=== PATIENT | female | born 1950 | race Caucasian/White ===

== ENCOUNTER 2018-10-15 10:10 | Day surgery (SDC) | payer MEDICARE, SELFPAY ==
--- NOTE | 2018-10-15 | PATH_ITS ---
[facility] Accession Number: [id number] . 01 Material submitted: . PART A: BIOPSY DUODENUM PART B: GASTRIC POLYP PART C: BIOPSY ANTRUM PART D: BIOPSY GE JUNCTION PART E: CECAL POLYP PART F: MID RIGHT COLON POLYP PART G: POLYP AT 20 . 02 Diagnosis: A. Duodenum, Biopsy: Duodenal mucosa with no significant diagnostic abnormality. Negative for active inflammation, features of sprue, dysplasia and malignancy. . B. Stomach, Polyp, Biopsy: Fundic gland polyp. No evidence of Helicobacter on H/E stain. Negative for intestinal metaplasia. Negative for dysplasia and malignancy. . C. Stomach, Antrum, Biopsy: Antral mucosa with no diagnostic abnormality. No evidence of Helicobacter on H/E stain. Negative for intestinal metaplasia. Negative for dysplasia and malignancy. . D. Gastroesophageal Junction, Biopsy: Squamocolumnar junctional mucosa with no diagnostic abnormality. Negative for intestinal metaplasia. Negative for dysplasia and malignancy. . E. Cecum, Polyp, Biopsy: Tubular adenoma. . F. Mid Right Colon, Polyp, Biopsy: Tubular adenoma. . G. Colon, Polyp at 20, Biopsy: Hyperplastic polyp. [facility]/10/16/2018 . 02 Electronically signed: . Rochelle Kimbrough MD, Pathologist NPI- [id number] . 01 Gross description: . Received seven formalin-filled containers each labeled with the patient's name. . A. In a container labeled duodenum, the specimen consists of a 0.2 cm portion of tissue. Entirely submitted in cassette A. B. In a container labeled gastric polyp are two 0.2 to 0.4 cm portions of tissue. Entirely submitted in cassette B. C. In a container labeled antrum, the specimen consists of a 0.4 cm portion of tissue. Entirely submitted in cassette C. D. In a container labeled GE junction are two 0.2 to 0.3 cm portions of tissue. Entirely submitted in cassette D. E. In a container labeled cecal polyp, the specimen consists of a 0.4 cm portion of tissue. Entirely submitted in cassette E. F. In a container labeled mid right colon polyp are two 0.2 to 0.4 cm portions of tissue. Entirely submitted in cassette F. G. In a container labeled polyp at 20, the specimen consists of a 0.2 cm in greatest dimension portion of tissue. Entirely submitted in cassette G. ([facility] [place]:[id number]) / . Pathologist provided ICD-10: D12.0, D12.6 . 02 CPT . 365279, 883704, 097702, 815688, 792952, 487500, 876114 Performed at: 01 [facility] [address] [id number] MD Tera Beard MD Phone: [phone] Performed at: 02 [facility] [address] [place] [id number] MD Rochelle Kimbrough MD Phone: [phone]
[2018-10-15 10:36] VITALS: BP 142/87; PULSE 104; RESP 16; TEMP 36.4; O2SAT 97; BMI 30.8
[2018-10-15] MEDS: SODIUM CHLORIDE 0.9% 1,000 ML 100 ML IV (10:37)
--- NOTE | 2018-10-15 11:18 | PM.PREOP ---
Pre-operative Note Interval Note History & Physical reviewed/Exam performed by Physician: Yes Changes to H&P: No
[2018-10-15] MEDS: TETRACAINE/BENZOCAINE/BUTAMBEN (CETACAINE) BOTTLE 1 SPRAY TOP (11:33)
[2018-10-15] MEDS: LIDOCAINE 4% SOLN 50 ML 20 ML TOP (11:33)
[2018-10-15] MEDS: MIDAZOLAM 5 MG/5 ML VIAL IV (11:46)
[2018-10-15] MEDS: fentaNYL 250 MCG/5 ML INJ IV (11:47)
--- NOTE | 2018-10-15 11:59 | P.OP_ITS ---
Operative Date/Time/Diagnoses Date of procedure: 10/15/18 Time of procedure: 11:58 Pre-op diagnosis: Gastroesophageal reflux Colon screening Post-op diagnosis: same Procedure & Clinicians Procedure: Esophagogastroduodenoscopy with biopsies and colonoscopy to the cecum with polypectomy times 3 Same procedure as scheduled: Yes Indications: Last colonoscopy 11 years ago Surgeon: Vibha Triplett Anesthesia Type: Sedation (Versed 6 mg; fentanyl 150 mcg) Operative Notes Findings: 1. Normal duodenum 2. Normal-appearing antrum 3. Polyp in the fundus of the stomach 4. Esophageal hiatus at 35 cm from the incisors and GE junction at 32-33 cm from the incisors 5. Mucosal junction is very smooth and regular in appearance 6. Excellent prep 7. 2 mm polyp in the floor of the cecum removed with cold forceps and retained for pathology 8. 3-4 mm polyp in the mid ascending colon removed with cold forceps and retained for pathology 9. 2-3 mm polyp at 20 cm removed with cold forceps and retained for pathology 10. Very mild sigmoid diverticulosis 11. Grade 2 internal hemorrhoids Closure Type: not applicable Specimen(s): other (See list above. All all specimens were obtained with cold forceps) Estimated Blood Loss (mL): 5 Procedure in detail: After obtaining informed consent, the patient was brought to the GI suite and placed in the left lateral decubitus position on the examination table. After placement of appropriate monitors, the patient was given incremental doses of Versed and Fentanyl until an appropriate level of sedation was achieved. A time out was held per SCOAP protocol. We began with EGD. A bite block was gently placed between the patient's teeth. The endoscope was lubricated and then passed into the patient's posterior oropharynx. The esophagus was cannulated under direct vision and the scope was passed to the second portion of the duodenum without difficulty. The scope was then withdrawn with careful examination of all areas of the upper GI tract and mucosa. In the stomach, the instrument was retroflexed and the GE junction examined. The scope was straightened and the procedure continued with examination of the remainder of the upper GI tract. Findings are noted above. Air was aspirated from the stomach and the endoscope gently removed from the e sophagus. The examination table was turned and we continued with the colonoscopy. A digital rectal examination was performed and did not reveal any masses or obstructing lesions. The colonoscope was gently passed into the patient's anus and the entire colon navigated to the level of the cecum with minimal difficulty. Once in the cecum, the scope was withdrawn being sure to go before and beyond all mucosal folds and prominences and get an excellent examination. The findings are noted above. At the level of the rectal vault, the scope was retroflexed and the internal anal canal was examined. The scope was straightened and air aspirated from the colon. The instrument was removed from the patient's body and the procedure was concluded. The patient was allowed to awaken from sedation without difficulty and taken to the post-anesthesia care unit in good condition. Total sedation time was 31 min Total colonoscopy withdrawal time was 12 min Complications: none Condition: stable Disposition: PACU Plan for aftercare: 1. Discharge to home 2. Plan for next colonoscopy in 5 years or as clinically indicated 3. Continue current medications 4. We will contact you with pathology results and any other recommendations
[2018-10-15 12:05] VITALS: BP 101/64; PULSE 72; RESP 14; TEMP 36.4; O2SAT 94
[2018-10-15 12:10] VITALS: BP 98/67; PULSE 88; RESP 18; TEMP 36.3; O2SAT 95
[2018-10-15 12:16] VITALS: BP 103/75; PULSE 89; RESP 14; O2SAT 94
[2018-10-15 12:41] VITALS: BP 113/66; PULSE 74; RESP 16; TEMP 36.4; O2SAT 96
== END 2018-10-15 12:56 | disposition home or self-care (01) ==
PROVIDERS: Family Provider Family Medicine; PCP Family Medicine; Visit Provider Surgery
PROC: 0DJ08ZZ Inspection of Upper Intestinal Tract, Via Natural or Artificial Opening Endoscopic (ICD-10-PCS; CPT 43235; principal; 2018-10-15 11:15)
PROC: 0DJD8ZZ Inspection of Lower Intestinal Tract, Via Natural or Artificial Opening Endoscopic (ICD-10-PCS; CPT 45378; 2018-10-15 11:15)
DX: Z12.11 Encounter for screening for malignant neoplasm of colon (principal); K21.9 Gastro-esophageal reflux disease without esophagitis; K57.30 Diverticulosis of large intestine without perforation or abscess without bleeding; K64.1 Second degree hemorrhoids; D12.0 Benign neoplasm of cecum; D12.6 Benign neoplasm of colon, unspecified; K31.7 Polyp of stomach and duodenum; I10 Essential (primary) hypertension; E03.9 Hypothyroidism, unspecified
CPT/HCPCS: 45380; 43239; 88305; 99152; 99153; J2250; J3010

== ENCOUNTER 2019-05-11 06:31 | Day surgery (SDC) | payer MEDICARE, SELFPAY ==
[2019-05-11] MEDS: CATARACT EYE COMPOUND (10 DROPS/SYRINGE) 3 DROPS EYE-OP ×3 (07:15→07:29)
[2019-05-11 07:26] VITALS: BP 155/72; PULSE 51; RESP 14; TEMP 36.2; O2SAT 96
[2019-05-11 07:30] VITALS: BMI 31.1
--- NOTE | 2019-05-11 07:44 | PM.PREOP ---
Pre-operative Note Interval Note History & Physical reviewed/Exam performed by Physician: No Changes to H&P: No
--- NOTE | 2019-05-11 07:44 | PM.OP.1 ---
Operative Date/Time/Diagnoses Pre-op diagnosis: Nuclear Cataract Left eye Post-op diagnosis: same Procedure & Clinicians Surgeon: Pepe England Anesthesia Type: MAC +/- and Sedation Operative Notes Procedure in detail: Patient brought to the operating suite. Tetracaine drops placed in the left eye. Patient was prepped and draped in sterile manner. Wire lid speculum was placed in the eye. Betadine drops were placed on the eye. This was irrigated. Lidocaine jelly was placed on the eye. A paracentesis port was created with a side-port blade. 0.1 mL 1% preservative free lidocaine was injected into the anterior chamber. The anterior chamber was deepened with viscoelastic. 2.6 mm keratome was used to create a temporal clear corneal incision. Cystotome and Utrata forceps were used to create continuous tear capsulorrhexis. Balanced salt solution was used to hydro dissect the nucleus. The [place] was used to make first crack of the nucleous. The phacoemulsification handpiece was inserted and the nucleus was removed using the stop and chop technique. The irrigation aspiration handpiece was inserted and the remaining cortex was removed. Anterior chamber was deepened with viscoelastic. An Gonzalez ZCB00 intraocular lens with a power of 15.0 was injected into the capsular bag. Irrigation aspiration handpiece was inserted and the remaining viscoelastic was removed. Incision was hydrated with balanced salt solution and found to be leak free with pressure with Weck-Steph sponges. 0.1 mL Vigamox injected anterior chamber. 0.3 mL Kenalog 10 mg was injected subconjunctivally. Lid speculum was removed. The patient left the operating room in excellent condition. Complications: none Post-operative Condition: stable Disposition: same day surgery
[2019-05-11] MEDS: BALANCED SALT IRRIG SOLN NO.2 500 ML, EPINEPHrine 1 MG IRR (08:05)
[2019-05-11] MEDS: TRIAMCINOLONE 50 MG/5 ML VIAL INJ (08:07)
[2019-05-11] MEDS: MOXIFLOXACIN INJ 5 MG/ML VIAL EYE-OP (08:09)
[2019-05-11] MEDS: LIDOCAINE JELLY 2% 5 ML 1 APPLIC TOP (08:13)
[2019-05-11 08:14] VITALS: BP 133/66; PULSE 59; RESP 16; TEMP 36.2; O2SAT 97
[2019-05-11] MEDS: CHONDROIDTIN/SOD HYALURONATE 1.05 ML SYRINGE INTRAOCULA (08:14)
== END 2019-05-11 08:31 | disposition home or self-care (01) ==
PROVIDERS: Family Provider Family Medicine; PCP Family Medicine; Visit Provider Ophthalmology
PROC: (CPT 66984; principal; 2019-05-11 07:45)
DX: H25.12 Age-related nuclear cataract, left eye (principal); I10 Essential (primary) hypertension
CPT/HCPCS: 66984; J0171; J2250; J3301

== ENCOUNTER 2019-05-25 07:02 | Day surgery (SDC) | payer MEDICARE, SELFPAY ==
[2019-05-25] MEDS: PROPARACAINE 0.5% OPHTH SOL 2 DROPS EYE-OP (07:15)
[2019-05-25] MEDS: CATARACT EYE COMPOUND (10 DROPS/SYRINGE) 3 DROPS EYE-OP (07:20)
[2019-05-25 07:21] VITALS: BMI 31.1
[2019-05-25 07:23] VITALS: BP 150/80; PULSE 61; RESP 15; TEMP 36.3; O2SAT 97
--- NOTE | 2019-05-25 07:47 | PM.PREOP ---
Pre-operative Note Interval Note History & Physical reviewed/Exam performed by Physician: No Changes to H&P: No
--- NOTE | 2019-05-25 07:47 | PM.OP.1 ---
Operative Date/Time/Diagnoses Pre-op diagnosis: Nuclear cataract right eye Procedure & Clinicians Procedure: Cataract Surgery Same procedure as scheduled: Yes Surgeon: Pepe England Anesthesia Type: MAC +/- and Sedation Operative Notes Procedure in detail: Patient brought to the operating suite. Tetracaine drops placed in the right eye. Patient was prepped and draped in sterile manner. Wire lid speculum was placed in the eye. Betadine drops were placed on the eye. This was irrigated. Lidocaine jelly was placed on the eye. A paracentesis port was created with a side-port blade. 0.1 mL 1% preservative free lidocaine was injected into the anterior chamber. The anterior chamber was deepened with viscoelastic. 2.6 mm keratome was used to create a temporal clear corneal incision. Cystotome and Utrata forceps were used to create continuous tear capsulorrhexis. Balanced salt solution was used to hydro dissect the nucleus. The phacoemulsification handpiece was inserted and the nucleus was removed using the stop and chop technique. The irrigation aspiration handpiece was inserted and the remaining cortex was removed. Anterior chamber was deepened with viscoelastic. An Gonzalez ZCB00 intraocular lens with a power of 14.5 was injected into the capsular bag. Irrigation aspiration handpiece was inserted and the remaining viscoelastic was removed. Incision was hydrated with balanced salt solution and found to be leak free with pressure with Weck-Steph sponges. 0.1 mL Vigamox injected anterior chamber. 0.3 mL Kenalog 10 mg was injected subconjunctivally. Lid speculum was removed. The patient left the operating room in excellent condition. Complications: none Post-operative Condition: stable Disposition: same day surgery
--- NOTE | 2019-05-25 07:53 | SUR.OPER ---
Supine on eye stretcher, head on extension cradle secured with tape. Arms tucked at sides with blanket. Pillow under knees.
[2019-05-25] MEDS: MOXIFLOXACIN INJ 5 MG/ML VIAL EYE-OP (07:55)
[2019-05-25] MEDS: PHENYLEPHRINE/LIDOCAINE VIAL (OR) 0.2 ML EYE-OP (07:56)
[2019-05-25] MEDS: TRIAMCINOLONE 50 MG/5 ML VIAL INJ (07:57)
[2019-05-25] MEDS: TETRACAINE 0.5% OPHTH DROPS 4 ML 2 DROPS EYE-OP (07:57)
[2019-05-25] MEDS: CHONDROIDTIN/SOD HYALURONATE 1.05 ML SYRINGE INTRAOCULA (07:57)
[2019-05-25] MEDS: LIDOCAINE JELLY 2% 5 ML 1 APPLIC TOP (07:57)
[2019-05-25] MEDS: BALANCED SALT IRRIG SOLN NO.2 500 ML, EPINEPHrine 1 MG IRR (07:58)
[2019-05-25 08:08] VITALS: BP 136/64; PULSE 57; RESP 15; TEMP 36.1; O2SAT 98
== END 2019-05-25 08:15 | disposition home or self-care (01) ==
PROVIDERS: Family Provider Family Medicine; PCP Family Medicine; Visit Provider Ophthalmology
PROC: (CPT 66984; principal; 2019-05-25 08:15)
DX: H25.11 Age-related nuclear cataract, right eye (principal); I10 Essential (primary) hypertension
CPT/HCPCS: 66984; J0171; J2250; J3301

== ENCOUNTER → 2020-04-09 14:44 | Outpatient (CLI) | payer MEDICARE, SELFPAY ==
[2020-04-10 17:34] LABS: COVID19 Sendout Not Detected (Not Detect)
== END ==
PROVIDERS: Family Provider Family Medicine; PCP Family Medicine; Visit Provider Physician Assistant
DX: Z11.59 Encounter for screening for other viral diseases (principal)
CPT/HCPCS: 87635

== ENCOUNTER 2020-04-12 13:02 | Day surgery (SDC) | payer MEDICARE, SELFPAY ==
[2020-04-05 07:22] VITALS: BMI 31.4
[2020-04-12] VITALS (7 sets, daily range): BP systolic 103–182; BP diastolic 60–85; PULSE 65–80; RESP 14–24; TEMP 35.8–36.7; O2SAT 95–99; BMI 31.4
--- NOTE | 2020-04-12 | PATH_ITS ---
[facility] Accession Number: [id number] . 01 Material submitted: . breast - LEFT BREAST DUCTECTOMY . 01 Clinical history: . A: LEFT BREAST DUCTECTOMY; SINGLE LONG STITCH SUPERFICIAL, SINGLE SHORT STITCH SUPERIOR, DOUBLE LONG STITCH MEDIAL, DOUBLE SHORT STITCH DEEP . 02 Diagnosis: Left Breast Ductectomy: CAP Template . 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 Procedure: Ductectomy. Laterality: Left. Tumor site: Left nipple (1 cm superior and 3.5 cm from nipple per SOAP note). Tumor size: Present as widely dispersed foci (less than 1 mm to approximately 8 mm) that discontinuously involve at least 9 of 12 slices. Histologic type: Predominantly solid architecture involving a papilloma without invasive carcinoma. Architectural patterns: Papillary, solid, and cribriform. Nuclear grade: Grade 2 (intermediate). Necrosis: Present, central (expansive comedo necrosis) Microcalcifications: Not identified. Margins: Medial margin suspicious for involvement over a 1 mm region. Please see comment. Distance from other margins: Anterior: 6 mm Posterior: 1 mm Superior: 1 mm Inferior: 1 mm Lateral: 10 mm (tissue disruption is obscuring) Regional lymph nodes: No lymph nodes submitted or found. Other findings: usual ductal hyperplasia, atypical ductal hyperplasia, adenosis and cystic dilatation of terminal ductules. . Pathologic stage classification (pTNM, AJCC 8th Edition): pTis(DCIS) pNX MRV 04/18/2020 1637 Local . 02 Comment: Comment regarding medial margin: At the medial margin, there is one duct that has histomorphologic features of at least atypical ductal hyperplasia. Despite the small volume of this atypical focus, its immunohistochemical profile and morphologic similarity to the widespread DCIS throughout this biopsy supports probable DCIS at the medial margin. . As part of routine microbiology quality control technician, this case was also reviewed by Drs. Kimbrough and Milana, who agree with the interpretation. . Results discussed with Dr. Cj Lopez's nurse, on 04/17/2020 at approximately 3:10 p.m. . 02 Electronically signed: . Ada Jj MD, Pathologist NPI- [id number] . 01 Gross description: . Received in formalin, labeled with the patient's name, MRN and left breast ductectomy; single long stitch superficial, single short stitch superior, double long stitch medial, double short stitch deep, is a 51-gram, 6.0 cm from medial to lateral, 5.4 cm from superficial to deep, and 3.7 cm from superior to inferior lumpectomy specimen. No needle localization wire is identified. The specimen is inked as follows: posterior=black; anterior=purple; superior=blue; inferior=green; medial=yellow; lateral=orange. The specimen is serially sectioned from medial to lateral into 12 slices. Within slices 6-12 are multiple roberts-white fibrotic areas and firm hemorrhagic areas. The remainder of the cut surface is yellow-roberts and lobulated. No discrete lesions are identified. Cfd Engineer sections are submitted as follows: . A1: slice 1, apparel trimmings sales representative perpendicular sections of medial margin. A2: apparel trimmings sales representative section from slice 3 in relation to superior margin. A3: apparel trimmings sales representative section from slice 5 in relation to inferior and posterior margins. A4: apparel trimmings sales representative section from slice 6 in relation to anterior and inferior margins. A5-A8: slice 7. A5: with posterior margin. A6: with posterior superior margin. A7: with superior anterior margin. A8: with posterior, inferior, and anterior margins. A9: apparel trimmings sales representative section from slice 8 in relation to anterior and inferior margins. A10: apparel trimmings sales representative section from slice 9 in relation to posterior and superior margins. A11: slice 11 in relation to superior, anterior, and lateral margins. A12: slice 12, apparel trimmings sales representative perpendicular sections of lateral margin. (SD/cmc10 [id number]) /MRV 04/17/2020 1532 Local . 02 Microscopic: . Immunohistochemistry studies were performed to further evaluate the cells of interest. The control stains showed appropriate reactivity. . Block A1: ER: Positive in region of interest. CK 5/6: Absent / diminished / non-mosaic in region of interest. . 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 . . Blocks A3, A4, A5, A6, A7, A8, A9, A11, and A12 : Myosin: Positive in region of interest. P63: Positive in region of interest. ER: Diffusely positive in region of interest. CK 5/6: Absent / diminished / non-mosaic in region of interest. . The presence of both p63 and myosin in the regions of interest mitigates against the presence of invasive carcinoma at these foci. . The strong ER immunostaining and diminished expression of CK5/6 supports the interpretation of ductal carcinoma in situ at these foci. . . CAP BREAST BIOMARKER REPORTING TEMPLATE: . Estrogen Receptor (ER) Status: Positive, greater than 90% of tumor nuclei. Average intensity of staining: Strong intensity. Primary antibody: SP1 . TECHNICAL NOTE: The scoring criteria for breast biomarkers by immunohistochemistry is based on the current ASCO/CAP guidelines (Randi et al, Arch Pathol Lab Med 2010: 134(6): 907-922 / Jean Paul FRANCO et al, Arch Pathol Lab Med 2014: 138(2): 241-256). Deparaffinized sections of formalin fixed tissue (along with appropriate positive controls) are incubated with the above antibody(s). Using the automated [place] stainer, tissue is incubated with the designated antibody* which is then localized by a non-biotin, dual polymer detection system. The external controls are reviewed for appropriate reactivity and found to be adequate. Results on the target cell population are indicated above. These tests have not been validated on decalcified tissue. * This test was developed and its performance characteristics determined by [facility]. It has not been cleared or approved by the U.S. Food and Drug Administration. The FDA has determined that such clearance or approval is not necessary. This test is used for clinical purposes. It should not be regarded as investigational or for research. . 02 Pathologist provided ICD-10: D05.10 . 02 CPT . 673763, I33043 Performed at: 01 [facility] [address] [facility], [place], [place] [id number] MD Tera Beard MD Phone: [phone] Performed at: 02 [facility] [id number] [place] [id number] MD Rochelle Kimbrough MD Phone: [phone]
[2020-04-12] MEDS: LACTATED RINGERS 1,000 ML 42 ML IV ×2 (14:00→16:08)
--- NOTE | 2020-04-12 14:25 | PM.PREOP ---
Pre-operative Note COVID-19 COVID-19 status: Negative Result date/Date tested (Pos, Neg/Pending): 04/09/20 Interval Note History & Physical reviewed/Exam performed by Physician: Yes Changes to H&P: No
[2020-04-12] MEDS: CEFAZOLIN 2 GM/100 ML FROZ.PIGGY IV (14:50)
--- NOTE | 2020-04-12 15:09 | SUR.OPER ---
Supine on padded OR bed, head on pillow, arms secured on padded arm boards at <90 degrees abduction, legs uncrossed, safety belt at thigh, tape over blanket over lower legs.
[2020-04-12] MEDS: BUPIVACAINE 0.25% W/ EPI 30 ML VIAL INJ (15:18)
[2020-04-12] MEDS: BUPIVACAINE LIPOSOME 266 MG/20 ML VIAL INJ (16:03)
--- NOTE | 2020-04-12 16:41 | PM.OP.1 ---
Operative Date/Time/Diagnoses Date of procedure: 04/12/20 Time of procedure: 16:41 Pre-op diagnosis: left breast duct abnormality Post-op diagnosis: other (Multiple ectatic and blood-filled ducts) Procedure & Clinicians Procedure: Central ductectomy Same procedure as scheduled: Yes Indications: This is a 70-year-old woman with left breast ductal bleeding and suspicion of ductal papilloma. Surgeon: Amina Corona Click Yes if Unassisted: Yes Anesthesia Type: General Operative Notes Findings: Dark, blood filled, ectatic ducts Specimen(s): other (Left breast ductal structures) Estimated Blood Loss (mL): 1 Procedure in detail: The patient was brought into the operating room and placed supine on the OR table. Sequential compression devices were placed on both legs and turned on. Appropriate perioperative antibiotics were given prior to the start of surgery. General anesthesia was induced the patient was intubated with an LMA. The left breast was prepped and draped in sterile fashion. Surgical time-out was conducted. A fine lacrimal probe was used to identify the abnormal duct. The probe was introduced into the duct, and advanced about 1/2 cm. Local anesthetic was then injected beneath the areola circumferentially. A 15 blade was used to make a curved incision along the border between the colored areola and normal skin along the inferior border of the areola. Less than 1/2 of the circumference of the areola was incised. Dissection was then carried down through the dermis and then transversely along the inferior surface of the areola until the ductal structures were reached. The involved duct was identified by both the presence of the lacrimal probe and the dark color of blood filling the duct and its associated trabeculated ducts downward away from the areola. The rim any small ducts involved, and on 2nd review of the patient's imaging during the operation, I was concerned that some of the additional abnormal appearing ducts were also involved. Therefore central ductectomy was performed. Dissection was carried circumferentially around the ductal structures and then dissection was carried down through the breast tissue to include the majority of the ductal structures. Many of the smaller trabeculated ductal structures were filled with dark blood-tinged fluid, similar to what had been draining out of the abnormal duct. These structures were dissected out, and included in the specimen. Once the ductal structures were excised, the specimen was marked with a long single stitch superficially, a short single stitch superiorly, long double stitch medially, and short double stitch deep. The cyst was passed off the field. Attention was then turned to the remaining breast tissue. Hemostasis was achieved with cautery. The remaining 0.25% bupivacaine with epinephrine was injected for a total of 30 mL for the case. An additional 20 mL of Exparel were injected circumferentially in small aliquots. The breast tissue was gently pulled together with 3 0 Vicryl to minimize a seroma cavity. The dermis and epidermis was then closed with interrupted 3 0 Vicryl suture, and running 4-0 Monocryl suture. The skin was sealed with Dermabond. A supportive bra was placed on the patient with extra padding over the surgical site. This concluded the procedure. At this point the needle sponge and instrument counts were correct. The specimen was passed off the table for pathology. The patient was awakened from anesthesia and extubated. She was transferred to the postanesthesia care unit in stable condition. Complications: none Post-operative Condition: stable Disposition: PACU
--- NOTE | 2020-04-12 17:02 | SUR.PHASEII ---
Dr Francis writing an order for oxycodone tab for pt.
[2020-04-12] MEDS: OXYCODONE IR 5 MG TABLET PO (17:10)
--- NOTE | 2020-04-12 17:33 | SUR.PHASEII ---
1715- called for pickup, pt assisted to get dressed, pain tolerable at 4/10, denies nausea, had 3 spoonfuls of pudding before taking oxycodone 5mg tab at 1700, taking po fluids without problems, up and ambulating gait steady. All dc instructions given to pt and she verbalizes understanding.
--- NOTE | 2020-04-12 17:35 | SUR.PHASEII ---
1725-Pt dcd in stable condition to private vehicle at [facility] and . 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
== END 2020-04-12 17:25 | disposition home or self-care (01) ==
LOC: OR 13:05
PROVIDERS: Family Provider Family Medicine; PCP Family Medicine; Referring Provider Family Medicine; Visit Provider Surgery
PROC: (CPT 19301; principal; 2020-04-12 14:15)
DX: D05.12 Intraductal carcinoma in situ of left breast (principal); I10 Essential (primary) hypertension; E03.9 Hypothyroidism, unspecified; K21.9 Gastro-esophageal reflux disease without esophagitis; Z17.0 Estrogen receptor positive status [ER+]
CPT/HCPCS: 19120; C9290; J0690; J1100; J2405; J2704; J3010

== ENCOUNTER → 2020-05-30 13:35 | Outpatient (CLI) | payer MEDICARE, SELFPAY ==
--- NOTE | 2020-05-30 13:40 | DI.MRI.S_ITS ---
BREAST MRI OF BOTH BREASTS: 05/30/2020 CLINICAL: Large left breast DCIS. PROCEDURE: MR BREAST BI WO/W CON INDICATIONS: left breast large DCIS, recommendation of tumor board TECHNIQUE: The patient was placed prone in a dedicated breast imaging coil. Precontrast axial STIR and 3D FLASH without fat saturation sequences were obtained. Both before and after bolus injection of contrast, sequential 1-minute axial 3D FLASH with fat saturation sequences for 3 time points, with subtraction images and maximum intensity projections (MIP's) generated. Delayed sagittal FLASH images with fat saturation were also obtained. Computer-aided detection, including computer algorithm analysis of MRI image data for lesion detection and characterization, pharmacokinetic analysis, with further physician review for interpretation, was performed. CONTRAST: 20 cc ProHance. COMPARISON: US, ABDOMEN COMPLETE, 01/21/2012, 8:07. [facility], , MAMMARY DUCTOGRAM, 03/13/2020, 11:29. [facility], , US LEFT BREAST, 02/16/2020, 13:50. [facility], MM TOMOSYNTHESIS DIAGNOSTIC LT, 02/16/2020, 13:30. [facility], MM TOMOSYNTHESIS SCREENING BI, 10/18/2019, 14:36. [facility], BILATERAL SCREEING MAMMOGRAM W/ CAD, 04/14/2018, 10:54. [facility], BILATERAL SCREEING MAMMOGRAM W/ CAD, 12/02/2016, 11:30. FINDINGS: Image quality: Excellent. There is mild background parenchymal enhancement. Right breast: A small enhancing focus in the retroareolar right breast with corresponding T2 hyperintensity. This may be seen on prior mammogram and likely represents a small intramammary lymph node. 9 o'clock anterior depth T2 hyperintense cyst measuring 1.7 x 0.7 cm, (10/19). No corresponding enhancement. No mass. Left breast: Asymmetrically enlarged compared to the right breast due to persistent edema. Medial retroareolar anterior depth biopsy cavity measuring 3.8 by 1.87 x 1.6 cm, (2). The internal contents are T1 hypointense, T2 hyperintense, with surrounding enhancement which is likely reactive given its uniform nature. 9 o'clock medial left breast anterior depth and approximately 1.6 cm from the inferior aspect of the biopsy cavity is a curvilinear enhancement measuring at 0.7 cm, (54). Kinetic analysis demonstrates slow initial phase with persistent delayed phase. 3 o'clock lateral left breast anterior depth and approximately 2.9 cm from the inferior aspect of the biopsy cavity margin, there is irregular enhancing focus measuring 0.5 cm, (/56). There is corresponding increased T2 hyperintensity. Kinetic analysis demonstrates slow initial phase with persistent delayed phase. The distance between these 2 sites measures 5.2 cm, (55). Additionally, there are small retroareolar T2 hyperintense cysts in the retroareolar left breast anterior depth and middle depth. Miscellaneous: No enlarged axillary adenopathy. Small subcentimeter T2 hyperintense foci in the right lobe of the liver without enhancement compatible with cysts. IMPRESSION: KNOWN BIOPSY PROVEN MALIGNANCY 1. Right breast: No mass or suspicious enhancement. 2. Left breast: Medial retroareolar anterior depth biopsy-proven DCIS. Small to moderate-sized hematoma at the biopsy cavity. Suspect surrounding reactive enhancement. 3. Left breast: Additional foci of enhancement at 9 o'clock anterior depth and 3 o'clock anterior depth both near the biopsy site cavity which are indeterminate. The distance between these 2 sites measures 5.2 cm. -if clinically indicated MRI guided biopsy could be performed on one or both of the sites to determine if there is multicentric disease. 4. No enlarged adenopathy. BIRADS 6. Left breast biopsy-proven DCIS. COMMENT: The imaging literature indicates that a negative contrast breast MRI examination has a high sensitivity and a moderate specificity for detecting and excluding invasive carcinomas to a detection threshold of 3-5 mm; nonetheless, appropriate clinical and mammographic follow-up are recommended. MRI is not sensitive for detecting DCIS (ductal carcinoma in situ) and may not detect large invasive neoplasms that show only minimal enhancement such as mucinous carcinoma. If there are suspicious calcifications or clinically worrisome palpable masses, then biopsy should still be considered. Invasive neoplasms can be hidden by co-existent and benign enhancement caused by mastitis, hormone therapy effects, radiation therapy, , and recent biopsy or surgery. False positive examinations can occur in a number of circumstances, including breasts that have recently been subject to invasive procedures and those that contain atypical ductal hyperplasia, hormonally stimulated glandular tissue, fat necrosis, or radial scars. Dictated by: Alvaro Hilton M.D. on 05/30/2020 at 17:02 This exam was interpreted at Station ID: [id number]. Electronically Signed By: Alvaro Hilton M.D. slc/:05/30/2020 17:56:11 ACR BI-RADS Category 6: Known biopsy proven malignancy [id number]
== END ==
PROVIDERS: Family Provider Family Medicine; PCP Family Medicine; Referring Provider Surgery; Visit Provider Surgery
DX: D05.12 Intraductal carcinoma in situ of left breast (principal); L76.32 Postprocedural hematoma of skin and subcutaneous tissue following other procedure; Z98.890 Other specified postprocedural states
CPT/HCPCS: 77049; A9579

== ENCOUNTER → 2020-10-09 11:15 | Outpatient (CLI) | payer MEDICARE, SELFPAY ==
--- NOTE | 2020-10-09 11:16 | DI.MRI.S_ITS ---
BREAST MRI OF BOTH BREASTS- WITH CAD: 10/09/2020 CLINICAL: Screening. Intraductal carcinoma of the left breast. Comparison is made to exams dated: 05/30/2020 breast MRI - [facility], 03/13/2020 ductography, and 02/16/2020 mammogram - [facility]. Interpretation of this MRI was correlated with available mammograms, ultrasounds, and previous MRI scans. Informed consent was obtained from the patient. 20 cc of ProHance (Gadoteridol) nonionic contrast was injected. Axial T1, T2, sagittal T1, and pre and post contrast T1 images were obtained with a dedicated breast coil. Post processing was performed including computer aided calculations of any tumor volumes and dimensions. There is mild background parenchymal enhancement. Right breast: No discrete mass or suspicious enhancement demonstrated within the right breast to suggest malignancy. Left breast: There is interval decrease in size of patient's lumpectomy cavity, with a small residual peripherally enhancing collection measuring up to 1.1 x 0.7 x 0.6 cm consistent with a postsurgical seroma. Mild non mass enhancement with indistinct margins is demonstrated centrally in the left breast at middle to anterior 3rd in depth. This demonstrates benign appearing kinetic enhancement curves with slow initial uptake and progressive enhancement. Within the anterior 3rd of the left breast at the 3 o'clock position, a small focus of enhancement appears similar in size compared to the prior study. Kinetic enhancement curves demonstrate slow initial uptake with gradual enhancement. The previously described focus of enhancement at the 9 o'clock position is decreased in prominence. No new discrete mass lesion identified in the left breast. Miscellaneous: No definite axillary or internal mammary lymphadenopathy by size criteria. There are bilateral axillary lymph nodes measuring less than 1 cm in short axis with preserved fatty teressa which appear similar to the prior study. No suspicious enlarged internal mammary lymph nodes. The visualized gallbladder demonstrates nonspecific wall enhancement. There is a probable cyst within the right hepatic dome. IMPRESSION: PROBABLY BENIGN 1. Interval decrease in size of patient's surgical cavity with a small residual seroma. Associated asymmetric mild non mass enhancement is demonstrated within the central left breast. Given the relatively mild degree of enhancement and benign appearing kinetic enhancement curves, the findings are suggestive of posttreatment changes. Recommend follow-up in 6 months to demonstrate stability or resolution. 2. Small focus of enhancement at the 3 o'clock position in the anterior left breast appears similar to the prior study and demonstrates benign appearing kinetic enhancement curves. Findings are suggestive of focal background enhancement but attention is recommended on follow-up. 3. Decreased prominence of previously described focus of enhancement at the 9 o'clock position. 4. No evidence of malignancy in the right breast. 5. Nonspecific wall enhancement of the visualized gallbladder. Recommend correlation clinically. A follow-up breast MRI in 6 months is recommended to demonstrate stability. This exam was interpreted at Station ID: [id number]. Electronically Signed By: Tera Roth M.D. ddp/:10/09/2020 16:46:51 ACR BI-RADS Category 3: Probably benign [id number]
== END ==
PROVIDERS: Referring Provider Surgery; Visit Provider Surgery
DX: Z12.39 Encounter for other screening for malignant neoplasm of breast (principal); D05.12 Intraductal carcinoma in situ of left breast; R93.89 Abnormal findings on diagnostic imaging of other specified body structures; N64.59 Other signs and symptoms in breast; Z98.890 Other specified postprocedural states
CPT/HCPCS: 77049

== ENCOUNTER → 2020-11-29 14:51 | Outpatient (CLI) | payer MEDICARE, SELFPAY ==
--- NOTE | 2020-11-29 14:54 | DI.US.S_ITS ---
LIMITED ULTRASOUND OF LEFT BREAST: 11/29/2020 CLINICAL: Patient returns today to evaluate a focal asymmetry in the left breast. Hx DCIS. Comparison is made to exams dated: 11/29/2020 mammogram, 10/09/2020 breast MRI, 05/30/2020 breast MRI - [facility], 03/13/2020 ductography, 02/16/2020 mammogram, and 02/16/2020 ultrasound - [facility]. Color flow and real-time ultrasound of the left breast 3 o'clock, 9 o'clock, and retroareolar regions were performed on the areas of interest. There is a 0.9 cm x 0.7 cm x 0.5 cm oval fluid collection in the left breast at 9 o'clock anterior depth. This oval fluid collection is hypoechoic with internal echoes. Color flow imaging demonstrates that there is no vascularity present. There also is a 0.7 cm x 0.4 cm x 0.4 cm cluster of oval cysts with a septated internal wall in the left breast at 3 o'clock middle depth. This cluster of oval cysts is hypoechoic. IMPRESSION: PROBABLY BENIGN The 0.9 cm x 0.7 cm x 0.5 cm oval fluid collection in the left breast at 9 o'clock anterior depth likely represents a resolving seroma as seen on prior MRI and is probably benign. A follow-up ultrasound in 6 months is recommended to demonstrate resolution. The 0.7 cm x 0.4 cm x 0.4 cm cluster of oval cysts in the left breast at 3 o'clock middle depth is consistent with complicated cysts and is probably benign. A follow-up ultrasound in 6 months is recommended to demonstrate stability. Future imaging is recommended as follows: 04/08/2021 breast MRI. MRI and US exams may be coordinated. This exam was interpreted at Station ID: [id number]. Electronically Signed By: Tera Roth M.D. ddfanta/:11/30/2020 11:42:36 copy to: RONALD CORTES letter sent: Followup Recommended Ultrasound BI-RADS: 3 Probably benign
--- NOTE | 2020-11-29 14:54 | DI.MG.S_ITS ---
BILATERAL DIGITAL DIAGNOSTIC MAMMOGRAM 3D/2D: 11/29/2020 CLINICAL: Breast cancer. Comparison is made to exams dated: 10/09/2020 breast MRI - [facility], 02/16/2020 mammogram, 10/18/2019 mammogram, and 04/14/2018 mammogram - [facility]. There are scattered fibroglandular elements in both breasts. There is irregular low density architectural distortion with an indistinct margin in the left breast central to the nipple anterior depth. This correlates with prior surgery. No other significant masses, calcifications, or other findings are seen in either breast. IMPRESSION: INCOMPLETE: NEEDS ADDITIONAL IMAGING EVALUATION The retroareolar architectural distortion in the left breast corresponds to post-surgical changes. An ultrasound is recommended to evaluate the postsurgical seroma seen on prior MRI. No definite mammographic correlate to the small enhancing focus in the left breast at 3:00 on prior MRI. Ultrasound is recommended for further evalution. Ultrasound will be performed immediately following the current exam. This exam was interpreted at Station ID: [id number]. NOTE: For mammograms, a report in lay terms will be sent to the patient. Approximately 15% of breast malignancies will not be visualized mammographically. In the management of a palpable breast mass, a negative mammogram must not discourage biopsy of a clinically suspicious lesion. Electronically Signed By: Tera Roth M.D. ddfanta/:11/29/2020 15:39:30 copy to: RONALD JURADO BI-RADS Category 0: Incomplete [id number]
== END ==
PROVIDERS: Referring Provider Surgery; Visit Provider Surgery
DX: D05.12 Intraductal carcinoma in situ of left breast (principal); R93.89 Abnormal findings on diagnostic imaging of other specified body structures; Z98.890 Other specified postprocedural states
CPT/HCPCS: 76642; 77066; 99215; G0279

== ENCOUNTER → 2021-02-07 10:24 | Outpatient (CLI) | payer MEDICARE, SELFPAY ==
[2021-02-07 12:14] LABS: Free T4, Direct Thyroxine 1.58 ng/dL (0.78-2.19)
[2021-02-07 12:33] LABS: Thyroid Stimulating Hormone < 0.015 uIU/mL (0.47-4.68)
[2021-02-08 05:36] LABS: Triiodothyronine T3 Total 110 ng/dL (71-180)
== END ==
PROVIDERS: Referring Provider Internal Medicine; Visit Provider Internal Medicine
DX: E06.3 Autoimmune thyroiditis (principal)
CPT/HCPCS: 36415; 84439; 84443; 84480

== ENCOUNTER → 2021-04-04 10:56 | Outpatient (CLI) | payer MEDICARE, SELFPAY ==
--- NOTE | 2021-04-04 10:57 | DI.MRI.S_ITS ---
BREAST MRI OF BOTH BREASTS- POST-RADIATION THERAPY: 04/04/2021 CLINICAL: MRI follow up, post radiation MRI. Comparison is made to exams dated: 10/09/2020 breast MRI - [facility], 03/13/2020 ductography, and 02/16/2020 mammogram - [facility]. Interpretation of this MRI was correlated with available mammograms, ultrasounds, and previous MRI scans. Informed consent was obtained from the patient. 20 cc of ProHance (Gadoteridol) nonionic contrast was injected. Axial T1, T2, sagittal T1, and pre and post contrast T1 images were obtained with a dedicated breast coil. Post processing was performed including computer aided calculations of any tumor volumes and dimensions. There is mild background parenchymal enhancement. Right breast: No discrete mass or suspicious enhancement demonstrated within the right breast to suggest malignancy. Left breast: No suspicious enhancement. Previously described seroma is resolved. Previously described small foci of enhancement are stable. Miscellaneous: No definite axillary or internal mammary lymphadenopathy by size criteria. There are bilateral axillary lymph nodes measuring less than 1 cm in short axis with preserved fatty teressa which appear similar to the prior study. No suspicious enlarged internal mammary lymph nodes. IMPRESSION: NEGATIVE No evidence of malignancy. Previously described seroma has resolved. Previously described small foci of enhancement in the left breast are unchanged. This exam was interpreted at Station ID: [id number]. Electronically Signed By: Gigi Evans M.D. jr/:04/04/2021 13:43:44 Entry: - 04/05/2021 07:15:19 copy to: RONALD JURADO BI-RADS Category 1: Negative [id number]
== END ==
PROVIDERS: Referring Provider Internal Medicine; Visit Provider Internal Medicine
DX: D05.12 Intraductal carcinoma in situ of left breast (principal); Z92.3 Personal history of irradiation
CPT/HCPCS: 77049

== ENCOUNTER 2021-06-22 11:51 | Emergency (ER) | payer MEDICARE, SELFPAY ==
[2021-06-22] VITALS (18 sets, daily range): BP systolic 160–208; BP diastolic 69–92; PULSE 53–79; RESP 12–32; TEMP 36.1; O2SAT 96–100
--- NOTE | 2021-06-22 12:06 | DI.RAD.S_ITS ---
PROCEDURE: XR CHEST 1V INDICATIONS: chest pain TECHNIQUE: One view of the chest was acquired. COMPARISON: None. FINDINGS: Surgical changes and devices: None. Lungs and pleura: Lungs are clear. No pleural effusions or pneumothorax. Mediastinum: Mediastinal contours appear normal. Heart size is normal. Bones and chest wall: No suspicious bony lesions. Overlying soft tissues appear unremarkable. IMPRESSION: No acute cardiopulmonary disease process. Dictated by: Ana Rosa Zavaleta MD, PhD on 06/22/2021 at 13:26 Approved by: Ana Rosa Zavaleta MD, PhD on 06/22/2021 at 13:26
[2021-06-22 12:14] LABS: Add Manual Diff / Slide Review NO; Basophils Absolute Auto 100 /uL (0-100); Basophils Percent Auto 1.4 % (0-2); Eosinophils Absolute Auto 200 /uL (0-450); Eosinophils Percent Auto 2.7 % (2-4); Hematocrit 40.5 % (36-46); Hemoglobin 13.6 g/dL (12.0-16.0); Lymphocytes Absolute Auto 1500 /uL (1100-4500); Mean Corpuscular HGB Conc 33.7 % (30-36); Mean Corpuscular Hemoglobin 31.3 PG (26-34); Mean Corpuscular Volume 92.9 fL (80-100); Monocytes Absolute Auto 700 /uL (0-900); Monocytes Percent Auto 9.7 % (3-14); Neutrophils Absolute Auto 4200 /uL (1500-7000); Neutrophils Percent Auto 63.2 % (50-75); Platelet Count 217 X10^3/uL (150-400); Red Blood Cell Count 4.35 X10^6/uL (4.0-5.2); Red Cell Distribution Width 13.2 % (11.6-14.8); White Blood Cell Count 6.7 X10^3/uL (4.5-11.0)
[2021-06-22 12:20] LABS: Alanine Aminotransferase 23 IU/L (<35); Albumin 3.9 g/dL (3.5-5.0); Albumin Globulin Ratio 1.6 (1.0-2.8); Alkaline Phosphatase 64 U/L (38-126); Aspartate Aminotransferase 23 IU/L (14-36); BUN Creatinine Ratio 17.9 (6-22); Bilirubin Total 0.5 mg/dL (0.2-1.3); Blood Urea Nitrogen 14 mg/dL (7-17); Calcium 8.8 mg/dL (8.4-10.2); Carbon Dioxide 27 mmol/L (22-32); Chloride 105 mmol/L (98-107); Creatine Kinase 45 U/L (30-135); Estimated Glomerular Filt Rate > 60.0 mL/min (>60); Globulin 2.5 g/dL (1.7-4.1); Glucose 125 mg/dL (80-110); HEMOLYSIS < 15 (0-50); Lipase 101 U/L (23-300); Potassium 3.8 mmol/L (3.4-5.1); Sodium 138 mmol/L (137-145); Total Protein 6.4 g/dL (6.3-8.2)
[2021-06-22] MEDS: ONDANSETRON 4 MG/2 ML INJ IV (12:20)
[2021-06-22 12:31] LABS: Troponin I < 0.012 ng/mL (0.01-0.034)
--- NOTE | 2021-06-22 12:59 | ED.DIZZY ---
HPI - Dizziness General Chief Complaint: Dizziness Stated Complaint: Vertigo, Nausea Time Seen by Provider: 06/22/21 12:55 Source: patient Mode of arrival: Wheelchair Limitations: no limitations History of Present Illness HPI Narrative: The patient had just undergone a pedicure, she was about to have a facial. She had sudden onset of dizziness. She denies an obvious spinning sensation. She has nose vision changes. She has no speech changes. She has her own historian, she has no memory issues. She has no focal numbness or weakness. She has no ear discomfort. She has no recent URI symptoms. She denies ENT complaints. She has chest pain or palpitations. She has no history of arrhythmia. She has no history of vertigo, and no history of stroke. Related Data Home Medications Medication Instructions Recorded Confirmed hydrochlorothiazide 25 mg tablet 12.5 mg PO DAILY 10/12/18 11/29/20 irbesartan 150 mg tablet 150 mg PO DAILY 10/12/18 11/29/20 levothyroxine 88 mcg tablet 88 mcg PO DAILY 10/12/18 11/29/20 (Levoxyl) liothyronine 25 mcg tablet 12.5 mcg PO DAILY tab 10/12/18 11/29/20 (Cytomel) loratadine 10 mg tablet (Claritin) 10 mg PO DAILY 10/12/18 11/29/20 propranolol 80 mg capsule,24 80 mg PO DAILY 10/12/18 11/29/20 hr,extended release (Inderal LA) famotidine 20 mg tablet (Pepcid) 20 mg PO DAILY 11/29/20 11/29/20 Previous Rx's Medication Instructions Recorded tamoxifen 20 mg tablet 20 mg PO DAILY #30 tab 02/08/21 tamoxifen 20 mg tablet 20 mg PO DAILY #90 tab 02/13/21 diazepam 5 mg tablet (Valium) 2.5 mg PO QID PRN #10 tab 06/22/21 meclizine 25 mg tablet 25 mg PO TID-QID PRN #30 tab 06/22/21 Allergies Allergy/AdvReac Type Severity Reaction Status Date / Time Iodinated Contrast Media AdvReac Intermediate Hives Verified 06/22/21 11:57 [Iodinated Contrast- Oral and IV Dye] antibiotic Allergy Mild Rash Uncoded 06/15/20 11:41 Review of Systems Constitutional Constitutional: Reports as per HPI, Denies chills, Denies fatigue, Denies fever(s) and Denies headache(s) Eyes Eyes: Denies blind spots, Denies blurry vision and Denies change in vision ENT Ears, Nose, Mouth, and Throat: Reports dizziness, Denies otalgia, Denies headache(s), Denies mouth pain and Denies nasal congestion Cardiovascular Cardiovascular: Denies chest pain, Denies syncope, Denies rapid heart rate and Denies dyspnea Respiratory Respiratory: Denies chest congestion, Denies cough and Denies dyspnea Gastrointestinal Gastrointestinal: Denies heartburn, Reports nausea and Denies vomiting Genitourinary Genitourinary: Denies dysuria Musculoskeletal Musculoskeletal: Denies numbness Neurologic Neurologic: Denies confusion, Reports dizziness, Denies syncope, Denies headache(s), Denies memory loss and Denies numbness Psychiatric Psychiatric: Denies confusion and Denies memory loss Endocrine Endocrine: Denies fatigue Patient History Medical History Bleeding from nipple in female GERD (gastroesophageal reflux disease) HTN (hypertension) Hypothyroidism Surgical History H/O laminectomy H/O: hysterectomy History of tonsillectomy Hx of bilateral cataract extraction Hx of breast surgery (~2009) Family History Mother Hypertension Stroke Father Heart disease Family/Other Stomach cancer Family/Other Stomach cancer Family/Other Stomach cancer Social History household members: spouse Smoking Status: Never smoker Smoking Status: Never smoker alcohol intake frequency: holidays/special occasions only Substance Use Type: does not use Exam Initial Vital Signs Initial Vital Signs: Vital Signs Temperature 97.0 F L 06/22/21 11:57 Pulse Rate 58 L 06/22/21 11:57 Respiratory Rate 14 06/22/21 11:57 Blood Pressure 172/86 H 06/22/21 11:57 Pulse Oximetry 100 06/22/21 11:57 Const General: cooperative, healthy appearing, comfortable and other (Dizziness with any head motion.) Nutritional Appearance: well nourished Orientation: Orientation (Normal rotation.) [facility] Head: normal to inspection, normocephalic and atraumatic Ears: TM's normal bilaterally Nose: external nose normal Face and sinus: normal facial exam Mouth: oral mucosae normal Throat: posterior oropharynx normal Eyes Conjunctivae: conjunctivae normal Cornea: corneas normal Pupils: PERRL EOM: EOM intact bilaterally Neck Neck: normal visual inspection and No JVD Thyroid: thyroid normal Resp Auscultation: clear to auscultation bilaterally Cardio Rate: regular rate Rhythm: regular rhythm Heart Sounds: S1 normal, S2 normal and no murmurs GI Palpation: soft and No tender Percussion: normal to percussion Auscultation: normal bowel sounds Back/Spine/Pelvis Back: normal to inspection and No back tenderness Skin General: no rashes or lesions noted Neuro General: patient alert, patient awake and patient oriented x3 Cranial Nerves: CN's II-XI intact bilaterally Cognition: normal cognition Speech: speech normal Motor: muscle tone normal throughout Sensory Exam: no sensory deficits noted Extrem General: normal to inspection Psych Mental Status: mental status grossly normal Course Course Course Narrative: The patient has improved after receiving meclizine, then Valium. She is up and ambulatory with minimal assistance. Head CT showed chronic changes, no acute findings. Orders Ordered: ED Orders 06/22/21 12:05 Complete Blood Count AUTO DIFF Stat Comprehensive Metabolic Panel Stat Lipase Stat Magnesium Stat Troponin & CK Cardiac Panel Stat 06/22/21 12:06 XR chest 1V Stat 06/22/21 12:07 EKG-12 Lead Stat 06/22/21 13:11 CT head/brain wo con Stat Discontinued Medications Diazepam (Diazepam 5 Mg Tablet) 2.5 mg PO NOW ONE Stop: 06/22/21 14:50 Last Admin: 06/22/21 14:59 Dose: 2.5 mg Documented by: ATAYLOR Meclizine HCl (Meclizine Hcl 12.5 Mg Tablet) 50 mg PO NOW ONE Stop: 06/22/21 13:12 Last Admin: 06/22/21 13:32 Dose: 50 mg Documented by: ATAYLOR Ondansetron HCl (Ondansetron 4 Mg/2 Ml Inj) 4 mg IV NOW ONE Stop: 06/22/21 12:18 Last Admin: 06/22/21 12:20 Dose: 4 mg Documented by: ALEKSEY Vital Signs Vital signs: Vital Signs - 8 hr 06/22/21 11:57 06/22/21 12:51 06/22/21 13:00 Temperature 97.0 F L Pulse Rate 58 L 55 L 53 L Respiratory Rate 14 22 12 Blood Pressure 172/86 H Pulse Oximetry 100 99 98 06/22/21 13:13 06/22/21 13:30 06/22/21 13:35 Temperature Pulse Rate 79 60 75 Respiratory Rate 32 H 15 29 H Blood Pressure 204/92 H 208/75 H Pulse Oximetry 99 98 99 06/22/21 14:00 06/22/21 14:01 Temperature Pulse Rate 58 L 58 L Respiratory Rate 26 H 18 Blood Pressure 165/70 H Pulse Oximetry 96 96 MDM - Dizziness Lab Data Result diagrams: 06/22/21 12:05 06/22/21 12:05 Labs: Lab Results 06/22/21 06/22/21 Range/Units 12:05 12:05 WBC 6.7 (4.5-11.0) X10^3/uL RBC 4.35 (4.0-5.2) X10^6/uL Hgb 13.6 (12.0-16.0) g/dL Hct 40.5 (36-46) % MCV 92.9 (80-100) fL MCH 31.3 (26-34) PG MCHC 33.7 (30-36) % RDW 13.2 (11.6-14.8) % Plt Count 217 (150-400) X10^3/uL Neut % (Auto) 63.2 (50-75) % Lymph % (Auto) 23.0 L (25-40) % Saline % (Auto) 9.7 (3-14) % Eos % (Auto) 2.7 (2-4) % Baso % (Auto) 1.4 (0-2) % Neut # (Auto) 4200 (0237-0419) /uL Lymph # (Auto) 1500 (3734-6709) /uL Saline # (Auto) 700 (0-900) /uL Eos # (Auto) 200 (0-450) /uL Baso # (Auto) 100 (0-100) /uL Sodium 138 (137-145) mmol/L Potassium 3.8 (3.4-5.1) mmol/L Chloride 105 (98-107) mmol/L Carbon Dioxide 27 (22-32) mmol/L BUN 14 (7-17) mg/dL Creatinine 0.78 (0.52-1.04) mg/dL Estimated GFR > 60.0 (>60) mL/min BUN/Creatinine Ratio 17.9 (6-22) Glucose 125 H (80-110) mg/dL Calcium 8.8 (8.4-10.2) mg/dL Magnesium 2.0 (1.6-2.3) mg/dL Total Bilirubin 0.5 (0.2-1.3) mg/dL AST 23 (14-36) IU/L ALT 23 (<35) IU/L Alkaline Phosphatase 64 (38-126) U/L Total Creatine Kinase 45 (30-135) U/L CK-MB (CK-2) TNP CK-MB (CK-2) Rel Index TNP Troponin I < 0.012 (0.01-0.034) ng/mL Total Protein 6.4 (6.3-8.2) g/dL Albumin 3.9 (3.5-5.0) g/dL Globulin 2.5 (1.7-4.1) g/dL Albumin/Globulin Ratio 1.6 (1.0-2.8) Lipase 101 (23-300) U/L Imaging Data Chest x-ray: Radiologist's Impression: No acute cardiopulmonary findings. CT scan - head: Radiologist's Impression: Abby Gracia??71??F??1950 ? Allergy/Adv: Iodinated Contrast Media, [antibiotic] (More??) Close Head CT (Signed) Jeane Glaser - 06/22/21 Chest X-Ray (Signed) Ana Rosa Zavaleta - 06/22/21 Breast MRI (Signed) Gigi Evans - 04/04/21 Mammogram Diagnostic (Signed) Tera Roth - 11/29/20 Breast Ultrasound (Signed) Tera Roth - 11/29/20 Breast MRI (Signed) Tera Roth - 10/09/20 Breast MRI (Signed) Alvaro Hilton - 05/30/20 Outside DI 02/16/20 Telemetry Strips 10/15/18 Launch?[address] [address] [address] Scan Report Signed Patient: Abby Gracia MR#: [id number] : 1950 Acct:[id number] Age/Sex: 71 / F Date of Service: 06/22/21 Loc: ED Accession Number: [id number] ?? Procedure: CT head/brain wo con Ordering Provider: Shyam Vargas MD PROCEDURE:? CT HEAD/BRAIN WO CON ? INDICATIONS:? Dizziness ? TECHNIQUE:? Noncontrast 4.5 mm thick angled axial sections acquired from the foramen magnum to the vertex, with coronal and sagittal reformats.? For radiation dose reduction, the following was used:? automated exposure control, adjustment of mA and/or kV according to patient size.? ? COMPARISON:? None. ? FINDINGS:? Image quality:? Excellent.? ? CSF spaces:? Basal cisterns are patent.? No extra-axial fluid collections.? The ventricles are symmetric in size and shape.? ? Brain:? No intracranial bleeds or masses.? There is cerebral volume loss for age, with resultant ventricular and sulcal prominence.? There are periventricular and deep white matter chronic small vessel ischemic changes.? There is intracranial internal carotid artery atherosclerosis.? ? Skull and face:? Calvarium and visualized facial bones appear intact, without suspicious lesions.? ? Sinuses:? Visualized sinuses and mastoids are clear.? ? IMPRESSION:? ? 1. No acute intracranial process. ? 2. Mild atrophy and chronic microvascular ischemic changes. ? ? ? Dictated by: Jeane Glaser M.D. on 06/22/2021 at 13:37 ? ? Approved by: Jeane Glaser M.D. on 06/22/2021 at 13:40?? ECG Data Attestation: I personally reviewed and interpreted this ECG as follows: (Sinus Osvaldo, rate 52 beats per minute. Normal intervals. No ectopy. No acute ST T wave changes.) Discharge Plan Departure Patient Disposition: Home Clinical Impression: Dizziness Instructions: DI for Dizziness-Nonvertigo Activity Restrictions/Additional Instructions: Meclizine every 6 hours as needed for dizziness or nausea. Valium 1/2 tablet every 6 hours as needed for added control for dizziness. Recheck with your doctor about 1 week, return here if obviously worse. Prescriptions: New meclizine 25 mg tablet 25 mg PO TID-QID PRN (Reason: dizziness) Qty: 30 RF: 0 diazepam [Valium] 5 mg tablet 2.5 mg PO QID PRN (Reason: dizziness) Qty: 10 RF: 0 No Action liothyronine [Cytomel] 25 mcg tablet 12.5 mcg PO DAILY RF: 0 levothyroxine [Levoxyl] 88 mcg tablet 88 mcg PO DAILY RF: 0 propranolol [Inderal LA] 80 mg capsule,extended release 24 hr 80 mg PO DAILY RF: 0 hydrochlorothiazide 25 mg tablet 12.5 mg PO DAILY RF: 0 irbesartan 150 mg tablet 150 mg PO DAILY RF: 0 loratadine [Claritin] 10 mg tablet 10 mg PO DAILY RF: 0 famotidine [Pepcid] 20 mg Tablet 20 mg PO DAILY RF: 0 tamoxifen 20 mg Tablet 20 mg PO DAILY Qty: 30 RF: 1 tamoxifen 20 mg Tablet 20 mg PO DAILY Qty: 90 RF: 1 Referrals: Dao Vu MD [Primary Care Provider] -
--- NOTE | 2021-06-22 13:11 | DI.CT.S_ITS ---
PROCEDURE: CT HEAD/BRAIN WO CON INDICATIONS: Dizziness TECHNIQUE: Noncontrast 4.5 mm thick angled axial sections acquired from the foramen magnum to the vertex, with coronal and sagittal reformats. For radiation dose reduction, the following was used: automated exposure control, adjustment of mA and/or kV according to patient size. COMPARISON: None. FINDINGS: Image quality: Excellent. CSF spaces: Basal cisterns are patent. No extra-axial fluid collections. The ventricles are symmetric in size and shape. Brain: No intracranial bleeds or masses. There is cerebral volume loss for age, with resultant ventricular and sulcal prominence. There are periventricular and deep white matter chronic small vessel ischemic changes. There is intracranial internal carotid artery atherosclerosis. Skull and face: Calvarium and visualized facial bones appear intact, without suspicious lesions. Sinuses: Visualized sinuses and mastoids are clear. IMPRESSION: 1. No acute intracranial process. 2. Mild atrophy and chronic microvascular ischemic changes. Dictated by: Jeane Glaser M.D. on 06/22/2021 at 13:37 Approved by: Jeane Glaser M.D. on 06/22/2021 at 13:40
[2021-06-22] MEDS: MECLIZINE HCL 12.5 MG TABLET 50 MG PO (13:32)
--- NOTE | 2021-06-22 14:24 | PC.NURSE ---
Pt reports improvements in symptoms, no longer is dizzy while staying in the same position and shorter period of adjustment when she does move her head. Denies nausea.
[2021-06-22] MEDS: diazePAM 5 MG TABLET 2.5 MG PO (14:59)
== END 2021-06-22 16:40 | disposition home or self-care (01) ==
PROVIDERS: Emergency Provider Emergency Medicine; PCP Family Medicine
DX: R42 Dizziness and giddiness (principal); R07.9 Chest pain, unspecified
CPT/HCPCS: 36415; 70450; 71045; 80053; 82550; 83690; 83735; 84484; 85025; 93005; 96374; 99284; J2405

== ENCOUNTER → 2022-02-04 15:37 | Outpatient (CLI) | payer MEDICARE, SELFPAY ==
--- NOTE | 2022-02-04 15:39 | DI.MRI.S_ITS ---
PROCEDURE: MR HEAD/BRAIN WO/W CON INDICATIONS: Ataxia and tremor TECHNIQUE: Noncontrast axial T1 spin echo, axial T2 fast spin echo, sagittal and axial FLAIR, coronal T2 fast spin echo, axial gradient echo, axial diffusion and ADC through the brain. After the administration of contrast, axial and coronal 3D VIBE or T1 spin echo with fat saturation through the brain. COMPARISON: [facility], CT, CT HEAD/BRAIN WO CON, 06/22/2021, 13:19. FINDINGS: Image quality: Excellent. CSF Spaces: Basal cisterns are patent. There is a large 4.0 x 3.6 x 2.2 centimeter cavum vergae cyst. Ventricles are normal in size and shape. Brain: No midline shift. No intracranial bleeds or masses. There is mild, diffuse cerebral volume loss. There are mild periventricular and subcortical white matter chronic microvascular ischemic changes. No abnormal intracranial enhancement. The brainstem appears normal. Diffusion-weighted images demonstrate no acute ischemic insults. No chronic ischemic insults. Normal intravascular flow voids are present. Dural sinuses demonstrate normal postcontrast enhancement. Skull and face: Calvarial marrow is normal in signal. Orbits appear normal. Sinuses: Sinuses and mastoids appear clear. IMPRESSION: 1. Large cavum vergae cyst. 2. No evidence of metastatic disease. 3. No suspicious postcontrast enhancement. 4. Mild, diffuse cerebral volume loss. 5. Mild periventricular and subcortical white matter chronic microvascular ischemic changes. Dictated by: Ana Rosa Zavaleta MD, PhD on 02/04/2022 at 16:38 Approved by: Ana Rosa Zavaleta MD, PhD on 02/04/2022 at 17:51
== END ==
PROVIDERS: PCP Family Medicine; Referring Provider Internal Medicine Hematology & Oncology; Visit Provider Internal Medicine Hematology & Oncology
DX: R27.0 Ataxia, unspecified (principal); R25.1 Tremor, unspecified; Q04.6 Congenital cerebral cysts
CPT/HCPCS: 70553; A9579

== ENCOUNTER → 2022-02-12 11:25 | Outpatient (CLI) | payer MEDICARE, SELFPAY ==
--- NOTE | 2022-02-12 11:26 | DI.MG.S_ITS ---
BILATERAL DIGITAL SCREENING MAMMOGRAM 3D/2D WITH CAD: 02/12/2022 CLINICAL: Routine screening. Personal history of left breast cancer. Comparison is made to exams dated: 11/29/2020 mammogram - [facility], 02/16/2020 mammogram, 10/18/2019 mammogram, 04/14/2018 mammogram, and 12/02/2016 mammogram - [facility]. There are scattered fibroglandular elements in both breasts. Current study was also evaluated with a Computer Aided Detection (CAD) system. There are benign post operative findings in the left breast. No significant masses, calcifications, or other findings are seen in either breast. There has been no significant interval change. IMPRESSION: BENIGN There is no mammographic evidence of malignancy. A 1 year screening mammogram is recommended. This exam was interpreted at Station ID: [id number]. NOTE: For mammograms, a report in lay terms will be sent to the patient. Approximately 15% of breast malignancies will not be visualized mammographically. In the management of a palpable breast mass, a negative mammogram must not discourage biopsy of a clinically suspicious lesion. Electronically Signed By: Alvaro olsen/emerson:02/12/2022 12:33:56 copy to: RONALD CORTES letter sent: Normal Exam ACR BI-RADS Category 2: Benign Finding(s) 3342F
== END ==
PROVIDERS: PCP Family Medicine; Referring Provider Internal Medicine Hematology & Oncology; Visit Provider Internal Medicine Hematology & Oncology
DX: Z12.31 Encounter for screening mammogram for malignant neoplasm of breast (principal); D05.12 Intraductal carcinoma in situ of left breast
CPT/HCPCS: 77063; 77067

== ENCOUNTER → 2022-04-10 10:44 | Outpatient (CLI) | payer MEDICARE, SELFPAY ==
[2022-04-10 11:16] LABS: Add Manual Diff / Slide Review NO; Basophils Absolute Auto 100 /uL (0-100); Basophils Percent Auto 1.2 % (0-2); Eosinophils Absolute Auto 300 /uL (0-450); Eosinophils Percent Auto 4.2 % (2-4); Hematocrit 38.6 % (36-46); Hemoglobin 13.2 g/dL (12.0-16.0); Lymphocytes Absolute Auto 1700 /uL (1100-4500); Lymphocytes Percent Auto 27.9 % (25-40); Mean Corpuscular HGB Conc 34.2 % (30-36); Mean Corpuscular Hemoglobin 31.3 PG (26-34); Mean Corpuscular Volume 91.3 fL (80-100); Monocytes Absolute Auto 700 /uL (0-900); Monocytes Percent Auto 11.6 % (3-14); Neutrophils Absolute Auto 3400 /uL (1500-7000); Neutrophils Percent Auto 55.1 % (50-75); Platelet Count 220 X10^3/uL (150-400); Red Blood Cell Count 4.23 X10^6/uL (4.0-5.2); Red Cell Distribution Width 13.5 % (11.6-14.8); White Blood Cell Count 6.2 X10^3/uL (4.5-11.0)
[2022-04-10 11:31] LABS: Alanine Aminotransferase 15 IU/L (<35); Albumin 3.5 g/dL (3.5-5.0); Albumin Globulin Ratio 1.3 (1.0-2.8); Alkaline Phosphatase 54 U/L (38-126); Aspartate Aminotransferase 20 IU/L (14-36); BUN Creatinine Ratio 18.8 (6-22); Bilirubin Total 0.3 mg/dL (0.2-1.3); Blood Urea Nitrogen 16 mg/dL (7-17); Calcium 8.7 mg/dL (8.4-10.2); Carbon Dioxide 29 mmol/L (22-32); Chloride 103 mmol/L (98-107); Estimated Glomerular Filt Rate > 60 mL/min (>60); Globulin 2.8 g/dL (1.7-4.1); Glucose 157 mg/dL (80-110); HEMOLYSIS < 15 (0-50); Potassium 4.1 mmol/L (3.4-5.1); Sodium 137 mmol/L (137-145); Total Protein 6.3 g/dL (6.3-8.2)
== END ==
PROVIDERS: PCP Family Medicine; Referring Provider Internal Medicine Hematology & Oncology; Visit Provider Internal Medicine Hematology & Oncology
DX: D05.12 Intraductal carcinoma in situ of left breast (principal)
CPT/HCPCS: 36415; 80053; 85025

== ENCOUNTER → 2023-02-13 12:25 | Outpatient (CLI) | payer MEDICARE, SELFPAY ==
--- NOTE | 2023-02-13 12:29 | DI.MG.S_ITS ---
BILATERAL DIGITAL SCREENING MAMMOGRAM 3D/2D WITH CAD: 02/13/2023 CLINICAL: Routine screening. Personal history of left breast cancer. Comparison is made to exams dated: 02/12/2022 mammogram, 11/29/2020 mammogram - [facility], and 02/16/2020 mammogram - [facility]. There are scattered areas of fibroglandular density in both breasts (category b / 25%-50% glandular tissue). Current study was also evaluated with a Computer Aided Detection (CAD) system. There are benign post operative findings in the left breast. No significant masses, calcifications, or other findings are seen in either breast. There has been no significant interval change. IMPRESSION: BENIGN There is no mammographic evidence of malignancy. A 1 year screening mammogram is recommended. This exam was interpreted at Station ID: [id number]. NOTE: For mammograms, a report in lay terms will be sent to the patient. Approximately 15% of breast malignancies will not be visualized mammographically. In the management of a palpable breast mass, a negative mammogram must not discourage biopsy of a clinically suspicious lesion. Electronically Signed By: Hao christopher/emerson:02/13/2023 13:21:59 copy to: RONALD CORTES letter sent: Normal Exam ACR BI-RADS Category 2: Benign Finding(s) 3342F
== END ==
PROVIDERS: PCP Family Medicine; Referring Provider Internal Medicine Hematology & Oncology; Visit Provider Internal Medicine Hematology & Oncology
DX: Z12.31 Encounter for screening mammogram for malignant neoplasm of breast (principal); D05.12 Intraductal carcinoma in situ of left breast; E53.8 Deficiency of other specified B group vitamins
CPT/HCPCS: 77063; 77067

== ENCOUNTER → 2024-10-05 09:49 | Outpatient (CLI) | payer MEDICARE, SELFPAY | PROVIDERS: PCP Family Medicine; Referring Provider Psychiatry & Neurology Neurology; Visit Provider Psychiatry & Neurology Neurology | DX: R26.0 Ataxic gait (principal); Z85.3 Personal history of malignant neoplasm of breast | CPT/HCPCS: 36415; 86051; 86255; 86341; 86596 ==

== ENCOUNTER 2025-02-07 09:41 | Emergency (ER) | payer MEDICARE, SELFPAY ==
[2025-02-07] VITALS (18 sets, daily range): BP systolic 147–201; BP diastolic 64–88; PULSE 53–85; RESP 12–42; TEMP 36.9; O2SAT 96–100; BMI 22.4
--- NOTE | 2025-02-07 | DI.MRI.S_ITS ---
PROCEDURE: MR HEAD/BRAIN W CON INDICATIONS: POSS STROKE TECHNIQUE: After the administration of contrast, axial and coronal and sagittal VIBE with fat saturation through the brain. COMPARISON: [facility], , MR HEAD/BRAIN WO CON, 02/07/2025, 12:08. FINDINGS/IMPRESSION: Image quality: Excellent. Post-contrast only sequences were obtained. No abnormal intracranial enhancement. Please refer to same day MRI brain without contrast with regards to other findings. Dictated by: Jordon Price M.D. on 02/07/2025 at 14:49 Approved by: Jordon Price M.D. on 02/07/2025 at 14:51
--- NOTE | 2025-02-07 | DI.MRI.S_ITS ---
PROCEDURE: MR ANGIO NECK W CON INDICATIONS: possible stroke TECHNIQUE: Axial and sagittal TruFISP through the neck. Coronal dynamic MRA after the administration of contrast in the arterial and venous phases, with rotating 3- dimensional maximum intensity projection (MIP) reformats constructed from subtraction images. COMPARISON: None. FINDINGS: Image quality: Excellent. Carotid system: Great vessels demonstrate a conventional anatomy as they arise from the aortic arch. The origins of the common carotid arteries appear normal. The calibers and courses of the common carotid arteries are likewise normal. The carotid bifurcations appear normal bilaterally. The internal carotid arteries are widely patent up to the [place]. Posterior circulation: The origins of the vertebral arteries are unremarkable. The more superior portions of the vertebral arteries demonstrate normal course and caliber. Vertebral arteries join to form a normal appearing basilar artery. Miscellaneous: Subclavian arteries are patent throughout. Limited precontrast images through the neck demonstrate no significant abnormalities. IMPRESSION: No significant arterial abnormalities. Any quantitative measurements of stenosis were performed using NASCET criteria. Dictated by: Jordon Price M.D. on 02/07/2025 at 15:10 Approved by: Jordon Price M.D. on 02/07/2025 at 15:13
--- NOTE | 2025-02-07 10:00 | EKG_ITS ---
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
[2025-02-07 10:32] LABS: Add Manual Diff / Slide Review NO; Basophils Absolute Auto 100 /uL (0-100); Basophils Percent Auto 1.2 % (0-2); Eosinophils Absolute Auto 200 /uL (0-450); Hematocrit 38.2 % (36-46); Hemoglobin 12.9 g/dL (12.0-16.0); Lymphocytes Absolute Auto 1800 /uL (1100-4500); Lymphocytes Percent Auto 21.1 % (25-40); Mean Corpuscular HGB Conc 33.8 % (30-36); Mean Corpuscular Volume 91.5 fL (80-100); Monocytes Absolute Auto 800 /uL (0-900); Monocytes Percent Auto 8.9 % (3-14); Neutrophils Absolute Auto 5700 /uL (1500-7000); Neutrophils Percent Auto 66.8 % (50-75); Platelet Count 250 X10^3/uL (150-400); Red Blood Cell Count 4.18 X10^6/uL (4.0-5.2); Red Cell Distribution Width 14.3 % (11.6-14.8); White Blood Cell Count 8.5 X10^3/uL (4.5-11.0)
[2025-02-07 10:39] LABS: Prothrombin Time 11.2 SECONDS (9.4-12.5)
[2025-02-07 10:42] LABS: PTT Partial Thromboplastin Tim 29 SECONDS (25.1-36.5)
[2025-02-07 10:50] LABS: Alanine Aminotransferase 20 IU/L (<35); Albumin 3.8 g/dL (3.5-5.0); Albumin Globulin Ratio 1.5 (1.0-2.8); Alkaline Phosphatase 56 U/L (38-126); Aspartate Aminotransferase 27 IU/L (14-36); BUN Creatinine Ratio 14.6 (6-22); Bilirubin Total 0.8 mg/dL (0.2-1.3); Blood Urea Nitrogen 12 mg/dL (7-17); Calcium 8.8 mg/dL (8.4-10.2); Carbon Dioxide 26 mmol/L (22-32); Chloride 101 mmol/L (98-107); Estimated Glomerular Filt Rate > 60 mL/min (>60); Globulin 2.6 g/dL (1.7-4.1); Glucose 178 mg/dL (70-99); HEMOLYSIS < 15 (0-50); Potassium 3.3 mmol/L (3.4-5.1); Sodium 135 mmol/L (137-145); Total Protein 6.4 g/dL (6.3-8.2)
[2025-02-07 11:00] LABS: UR Morphine/Opiate cutoff 300 Negative (Negative); Ur Creatinine Normal (Normal); Ur Specific Gravity Normal (Normal); Urine Amphetamines Negative (Negative); Urine Barbiturates Negative (Negative); Urine Benzodiazepines Negative (Negative); Urine Cocaine Negative (Negative); Urine MDMA Negative (Negative); Urine Methadone Negative (Negative); Urine Methamphetamines Negative (Negative); Urine Oxycodone Negative (Negative); Urine Phencyclidine Negative (Negative); Urine Tetrahydrocannabinol Negative (Negative); Urine Tricyclic Antidepressant Negative (Negative); Urine pH Normal (Normal)
[2025-02-07 11:08] LABS: Prolactin 10.2 ng/mL (3.0-18.6)
--- NOTE | 2025-02-07 11:10 | ED_ITS ---
HPI - Altered Mental Status General Chief Complaint: Altered Mental Status Stated Complaint: Rule out stroke, send from PCP Time Seen by Provider: 02/07/25 11:08 Source: patient and family Mode of arrival: Ambulatory History of Present Illness HPI narrative: [age] year old female with history of ataxia, tremor, B12 deficiency, follows with [facility] neurology, here for evaluation of episode on Friday of amnesia. Patient reports went to see a play in [place] with her daughters. That morning she felt a little ?off? she attributed to her history of ataxia. She reports felt off balance although this is normal for her. She ambulates with a cane at baseline. She remembers driving in the car to [place], getting through security, finding their seats. She reports has no recollection of the majority of that evening until later when the wheelchair was being brought to her at the theater and then later being in the car. Unfortunately her daughters are not present. Patient relays that they did note that she was acting unusually in that she had leaned against a shoulder of the stranger sitting next to her, had insisted that they go to the [employer], was making comments to to theater staff such as ?they'll never let me back in here. ? The patient had 1 glass of wine prior to sitting down in her seat that evening. She does not drink regularly. She has never had an episode such as this before. According to her daughters, pt says she was having a great time. She does not recall any slurred speech or weakness on 1 side of the body. Her ataxia she says is at baseline for her. Denies history of stroke or head trauma Related Data Home Medications ?Medication ?Instructions ?Recorded ?Confirmed hydrochlorothiazide 25 mg tablet 12.5 mg PO DAILY 09/2502/17/23 irbesartan 150 mg tablet 150 mg PO DAILY 10/12/18 levothyroxine 88 mcg tablet 88 mcg PO DAILY 10/12/18 0 02/17/23 (Levoxyl) liothyronine 25 mcg tablet 12.5 mcg PO DAILY 10/12/18 02/17/23 (Cytomel) loratadine 10 mg tablet (Claritin) 10 mg PO DAILY 09/2502/17/23 propranolol 80 mg capsule,24 80 mg PO DAILY 10/12/18 0 02/17/23 hr,extended release (Inderal LA) famotidine 20 mg tablet (Pepcid) 20 mg PO DAILY 02/17/23 aspirin 81 mg tablet 81 mg PO DAILY 10/11/2101/24 Previous Rx's ?Medication ?Instructions ?Recorded tamoxifen 20 mg tablet 20 mg PO DAILY #90 tabs 05/26 12/14 Allergies Allergy/AdvReac Type Severity Reaction Status Date / Time Iodinated Contrast Media AdvReac Intermediate Hives Verified 06/22/21 11:57 (Iodinated Contrast- Oral and IV Dye) antibiotic Allergy Mild Rash Uncoded 06/15/20 11:41 Review of Systems Review of Systems Narrative: Pertinent ROS obtained and negative except as stated in HPI Patient History Medical History Bleeding from nipple in female GERD (gastroesophageal reflux disease) Hypothyroidism HTN (hypertension) Surgical History Hx of breast surgery (~2009) Hx of bilateral cataract extraction H/O laminectomy H/O: hysterectomy History of tonsillectomy Family History Mother Hypertension Stroke Father Heart disease Family/Other Stomach cancer Family/Other Stomach cancer Family/Other Stomach cancer Social History household members: spouse Smoking Status: Never smoker Smoking Status: Never smoker alcohol intake frequency: holidays/special occasions only Alcohol type: wine Exam Initial Vital Signs Initial Vital Signs: Vital Signs Pulse Rate 75 02/07/25 09:56 Respiratory Rate 25 H 02/07/25 09:56 Pulse Oximetry 100 02/07/25 09:56 Constitutional: Well appearing, no acute distress Head: NCAT Cardiovascular: RRR, no murmur or rub Pulmonary: CTA bilaterally, no respiratory distress Abdominal: soft, non-tender Extremities: No LE edema Skin: warm and dry, no diaphoresis Neurological: Alert and oriented x3. Follows commands. Normal EOM. No visual loss. No facial palsy. Equal 5/5 strength UE and LEs. No limb ataxia. Normal sensation. Normal speech. No dysarthria. No truncal ataxia. Significant ataxia with upper extremities with [id number]. No nystagmus noted. Course Orders Ordered: ED Orders 02/07/25 10:07 EKG-12 Lead Stat 02/07/25 10:10 Complete Blood Count AUTO DIFF Stat Comprehensive Metabolic Panel Stat Lactate (Lactic Acid) Stat PTT Partial Thromboplastin Sin Stat Prolactin Stat Prothrombin Time INR Stat T4 Total Thyroxine Stat Thyroid Stimulating Hormone Stat Urine Drug Screen, Rapid Stat 02/07/25 12:04 MR head/brain wo con Stat 02/07/25 14:21 MR angio head wo con Routine Vital Signs Vital signs: Vital Signs - 8 hr 02/07/25 09:56 02/07/25 09:58 02/07/25 10:00 Temperature 98.4 F Pulse Rate 75 85 Respiratory Rate 25 H 16 Blood Pressure 201/64 H 201/84 H Pulse Oximetry 100 97 Oxygen Delivery Method Room Air 02/07/25 10:00 02/07/25 10:18 02/07/25 10:18 Temperature Pulse Rate 68 67 Respiratory Rate 19 42 H Blood Pressure 200/84 H Pulse Oximetry 100 97 Oxygen Delivery Method 02/07/25 10:30 02/07/25 10:30 02/07/25 11:00 Temperature Pulse Rate 59 L 53 L Respiratory Rate 30 H 16 Blood Pressure 167/71 H Pulse Oximetry 99 99 Oxygen Delivery Method Room Air 02/07/25 11:00 02/07/25 11:30 02/07/25 11:31 Temperature Pulse Rate 58 L Respiratory Rate 30 H Blood Pressure 154/69 H 187/83 H Pulse Oximetry 96 Oxygen Delivery Method 02/07/25 11:31 Temperature Pulse Rate 59 L Respiratory Rate 36 H Blood Pressure Pulse Oximetry 97 Oxygen Delivery Method Room Air MDM - Altered Mental Status Lab Data 02/07/25 10:10 02/07/25 10:10 Labs: Lab Results 02/07/25 Range/Units 10:10 WBC 8.5 (4.5-11.0) X10^3/uL RBC 4.18 (4.0-5.2) X10^6/uL Hgb 12.9 (12.0-16.0) g/dL Hct 38.2 (36-46) % MCV 91.5 (80-100) fL MCH 31.0 (26-34) PG MCHC 33.8 (30-36) % RDW 14.3 (11.6-14.8) % Plt Count 250 (150-400) X10^3/uL Neut % (Auto) 66.8 (50-75) % Lymph % (Auto) 21.1 L (25-40) % Cameron % (Auto) 8.9 (3-14) % Eos % (Auto) 2.0 (2-4) % Baso % (Auto) 1.2 (0-2) % Neut # (Auto) 5700 (5839-8743) /uL Lymph # (Auto) 1800 (6606-7183) /uL Cameron # (Auto) 800 (0-900) /uL Eos # (Auto) 200 (0-450) /uL Baso # (Auto) 100 (0-100) /uL PT 11.2 (9.4-12.5) SECONDS INR 1.0 (0.9-1.3) APTT 29 (25.1-36.5) SECONDS Sodium 135 L (137-145) mmol/L Potassium 3.3 L (3.4-5.1) mmol/L Chloride 101 (98-107) mmol/L Carbon Dioxide 26 (22-32) mmol/L BUN 12 (7-17) mg/dL Creatinine 0.82 (0.52-1.04) mg/dL Estimated GFR > 60 (>60) mL/min BUN/Creatinine Ratio 14.6 (6-22) Glucose 178 H (70-99) mg/dL Lactate 2.0 (0.7-2.1) mmol/L Calcium 8.8 (8.4-10.2) mg/dL Total Bilirubin 0.8 (0.2-1.3) mg/dL AST 27 (14-36) IU/L ALT 20 (<35) IU/L Alkaline Phosphatase 56 (38-126) U/L Total Protein 6.4 (6.3-8.2) g/dL Albumin 3.8 (3.5-5.0) g/dL Globulin 2.6 (1.7-4.1) g/dL Albumin/Globulin Ratio 1.5 (1.0-2.8) TSH < 0.015 L (0.47-4.68) uIU/mL Thyroxine (T4) 11.90 H (5.5-11.0) ug/dL Prolactin 10.2 (3.0-18.6) ng/mL U Opiates 300ng/mL cut Negative (Negative) Ur Oxycodone Screen Negative (Negative) Urine Methadone Screen Negative (Negative) Ur Barbiturates Screen Negative (Negative) U Tricyclic Antidepress Negative (Negative) Ur Phencyclidine Scrn Negative (Negative) Ur Amphetamines Screen Negative (Negative) U Methamphetamines Scrn Negative (Negative) Ur MDMA Scrn (Ecstasy) Negative (Negative) U Benzodiazepines Scrn Negative (Negative) Urine Cocaine Screen Negative (Negative) U Marijuana (THC) Screen Negative (Negative) Urine pH Normal (Normal) Urine Specific [place] Normal (Normal) Ur Creatinine Normal (Normal) Point of Care Testing Glucose POC 190 Urine Dip Bedside Urine Glucose Negative Bedside Urine Bilirubin - Negative Bedside Urine Ketone - Negative Urine Specific [place] 1.010 Bedside Urine Occult Blood - Negative Bedside Urine pH 6.0 Bedside Urine Protein - Negative Bedside Urine Urobilinogen - Negative Bedside Urine Nitrite - Negative Bedside Urine Leukocytes - Negative Esterase MDM Narrative Medical decision making narrative: In brief, this is a 75-year-old female with history of ataxia and B12 deficiency, falls with schedule it neurology, here with her for evaluation of neurological episode that occurred on Friday, has since resolved. It is described in detail above but essentially does not recall events of a night at the theater with her family, was acting really strange according to them. She was brought here by her for evaluation of stroke. Unfortunately he was not present that night at the theater and history is all obtained second hand through the patient. In chart review: I see the patient is prescribed propranolol. She has history of breast cancer On arrival to the emergency department, the patient is well-appearing in no acute distress. She has a known essential tremor. No focal neurologic deficits on my exam Differential diagnoses considered but not limited to: Transient global amnesia, Wernicke's encephalopathy, psychogenic amnesia, dissociative episode, alcohol intoxication. Lack of a localizing symptoms or deficits on exam I think is less consistent with TIA or seizure. No reported syncopal episode. Initial treatment plan includes: Check laboratories, CT CTA, check EKG, monitor EKG 10:00 a.m.: Sinus rhythm rate of 69, normal NM 130, QRS 78, QTC 467, normal axis. No ST segment elevation or depression although there is some baseline artifact noted Laboratories pertinent for: No leukocytosis no anemia, normal coags, sodium 135, potassium is slightly low at 3.3, glucose 178, TSH less than 0.015, normal prolactin, negative urine drug screen Imaging pertinent for: MR brain stroke protocol no evidence of stroke Spoke with managed services sales consultant Dr. Kuhn at 1606 regarding pts presentation. Relays EEG had previously been completed. -Pt seemingly had some kind of dissociative episode -Reassured by MR brain today. Agrees with workup of note. -Does not think any further workup required today -Rec's follow up in clinic On reassessment pt is updated regarding MR findings and laboratories and neurology rec's. She has remained well here throughout her visit without any further episodes. Return precautions discussed and provided prior to discharge Pertinent scoring tools used to guide clinical decision making, if applicable: Discharge Plan Departure Patient Disposition: Home Clinical Impression: Transient confusion Instructions: DI for Altered Mental Status Activity Restrictions/Additional Instructions: Tested today were overall reassuring. MRI of your brain did not show any evidence of stroke or other abnormalities. Please follow-up with your family doctor regarding your ED visit today. At the time of your discharge urinalysis is pending. You will receive a call from the hospital if you require an antibiotic Prescriptions: No Action tamoxifen 20 mg Tablet 20 mg PO DAILY Qty: 90 3RF Rx Instructions: take by mouth once daily liothyronine [Cytomel] 25 mcg tablet 12.5 mcg PO DAILY levothyroxine [Levoxyl] 88 mcg tablet 88 mcg PO DAILY propranolol [Inderal LA] 80 mg capsule,extended release 24 hr 80 mg PO DAILY hydrochlorothiazide 25 mg tablet 12.5 mg PO DAILY irbesartan 150 mg tablet 150 mg PO DAILY loratadine [Claritin] 10 mg tablet 10 mg PO DAILY famotidine [Pepcid] 20 mg Tablet 20 mg PO DAILY aspirin 81 mg Tablet 81 mg PO DAILY Referrals: Dao Vu MD [Primary Care Provider, Family Practice] Stand Alone Forms: Patient Portal/API
[2025-02-07 11:23] LABS: Thyroid Stimulating Hormone < 0.015 uIU/mL (0.47-4.68)
--- NOTE | 2025-02-07 12:04 | DI.MRI.S_ITS ---
PROCEDURE: MR HEAD/BRAIN WO CON INDICATIONS: ataxia, amnesia TECHNIQUE: Non-contrast axial T1 spin echo, axial T2 fast spin echo, sagittal and axial FLAIR, coronal T2 fast spin echo, axial gradient echo, axial diffusion and ADC through the brain. COMPARISON: [facility], MR, MR HEAD/BRAIN WO/W CON, 02/04/2022, 15:39. [facility], CT, CT HEAD/BRAIN WO CON, 06/22/2021, 13:19. FINDINGS: Image quality: Excellent. CSF spaces: Ventricles appear symmetric in size and shape. Basal cisterns are patent. No extra-axial fluid collections. Brain: No intracranial bleeds. There is cerebral volume loss for age. 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 There are periventricular and deep white matter chronic small vessel ischemic changes. Brainstem appears normal. Diffusion-weighted images show no acute infarct. No chronic ischemic insults. Normal intravascular flow voids are present. Skull and face: Calvarial bone marrow is normal in signal. Orbits are normal. Sinuses: Sinuses and mastoids are clear. IMPRESSION: 1. No acute intracranial process. 2. Moderate atrophy and chronic microvascular ischemic changes. 3. Unchanged cavum vergae cyst. Dictated by: Jeane Glaser M.D. on 02/07/2025 at 13:06 Approved by: Jeane Glaser M.D. on 02/07/2025 at 13:11
--- NOTE | 2025-02-07 14:21 | DI.MRI.S_ITS ---
PROCEDURE: MR ANGIO HEAD WO CON INDICATIONS: POSSIBLE STROKE TECHNIQUE: Noncontrast axial 3-D [id number] MR angiogram, with 3-dimensional maximum intensity projection (MIP) reformats of the internal carotid arteries and posterior circulation then performed. COMPARISON: None. FINDINGS: Image quality: Excellent. Anterior circulation: Intracranial internal carotid arteries demonstrate normal size and intraluminal flow signal. The flow within the paired anterior cerebral arteries is normal and symmetric. The flow within the middle cerebral arteries is normal and symmetric. The anterior communicating artery is seen. No stenoses, occlusions, or aneurysms. Posterior circulation: Visualized portions of the vertebral arteries demonstrate normal caliber, and join to form a normal appearing basilar artery. origin of the right PLAN COORDINATOR. The flow within the posterior cerebral arteries is normal and symmetric. No stenoses, occlusions, or aneurysms. IMPRESSION: No significant arterial abnormalities. Dictated by: Jordon Price M.D. on 02/07/2025 at 15:02 Approved by: Jordon Price M.D. on 02/07/2025 at 15:10
== END 2025-02-07 16:40 | disposition home or self-care (01) ==
PROVIDERS: Emergency Provider Student in an Organized Health Care Education/Training Program; PCP Family Medicine
DX: R41.0 Disorientation, unspecified (principal)
CPT/HCPCS: 36415; 70544; 70548; 70551; 70552; 80053; 80305; 81003; 82962; 83605; 84146; 84436; 84443; 85025; 85610; 85730; 93005; 99284; A9579